=== PATIENT | female | born 2000 | race Caucasian/White ===

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

== ENCOUNTER 2022-11-21 10:41 | Emergency (ER) | payer OTHER ==
[2022-11-21 11:50] LABS: BASOPHILS ABSOLUTE AUTO 0.02 K/mm3 (0.01-0.08); BASOPHILS PERCENT AUTO 0.3 % (0.1-1.2); EOSINOPHILS ABSOLUTE AUTO 0.07 K/mm3 (0.04-0.36); EOSINOPHILS PERCENT AUTO 1.1 (0.7-5.8); HEMATOCRIT 36.3 % (34.1-44.9); HEMOGLOBIN 12.6 gm/dl (11.2-15.7); LYMPHOCYTES ABSOLUTE AUTO 1.39 K/mm3 (1.18-3.74); LYMPHOCYTES PERCENT AUTO 21.4 % (19.3-51.7); MEAN CORPUSCULAR HEMOGLOBIN 28.2 pg (25.6-32.2); MEAN CORPUSCULAR HGB CONC 34.7 g/dl (32.2-35.5); MEAN CORPUSCULAR VOLUME 81.2 fl (79.4-94.8); MEAN PLATELET VOLUME 10.5 fl (9.4-12.3); MONOCYTES ABSOLUTE AUTO 0.52 K/mm3 (0.24-0.36); NEUTROPHILS ABSOLUTE AUTO 4.49 K/mm3 (1.56-6.13); NEUTROPHILS PERCENT AUTO 69.2 % (34.0-71.1); PLATELET COUNT,PLT 295 K/mm3 (182-369); RED BLOOD CELL COUNT 4.47 M/mm3 (3.98-5.22); WHITE BLOOD CELL COUNT,WBC 6.49 K/mm3 (3.98-10.04)
[2022-11-21 13:48] LABS: APPEARANCE,URINE CLEAR (Clear); BILIRUBIN,URINE NEGATIVE (Negative); COLOR,URINE YELLOW (Yellow); GLUCOSE,URINE NEGATIVE (Negative); KETONES,URINE NEGATIVE (Negative); LEUKOCYTE ESTERASE,URINE NEGATIVE (Negative); NITRITE,URINE NEGATIVE (Negative); OCCULT BLOOD,URINE 2+ (Negative); PH,URINE 7.5 (5.0-8.0); PROTEIN,URINE NEGATIVE (Negative); UROBILINOGEN,URINE 0.2 (0.2-1.0)
[2022-11-21 13:55] LABS: BACTERIA,URINE RARE /hpf (FEW); MUCUS,URINE RARE /hpf (FEW); SQUAMOUS EPITHELIAL CELLS,UR 0-5 /hpf (0-5); WBC,URINE NOT SEEN /hpf (0-5)
[2022-11-21 15:12] LABS: C. TRACHOMATIS BY PCR NOT DETECTED; N. GONORRHOEAE BY PCR NOT DETECTED
== END 2022-11-21 15:40 | disposition home or self-care (01) ==
LOC: JD.ED 10:41
DX: O20.0 Threatened abortion (principal); Z3A.01 Less than 8 weeks gestation of pregnancy; Z87.891 Personal history of nicotine dependence; Z88.0 Allergy status to penicillin
CPT/HCPCS: 36415; 76817; 76817-26; 81001; 84702; 85025; 87491; 87591; 99284

== ENCOUNTER 2023-07-13 11:12 | Inpatient (IN) | payer BC ==
[2023-07-13] MEDS ORDERED: Calcium Carbonate 500 MG Tab.Chew PO PRN (19:26)
[2023-07-13] MEDS ORDERED: Sodium Chloride 0.9% 10 ML Syringe FLUSH PRN (19:26)
[2023-07-13] MEDS ORDERED: Nalbuphine HCl 10 MG/ 1ML Amp IVPUSH PRN (19:26)
[2023-07-13] MEDS ORDERED: Lidocaine 1% 50 ML MDV INJECT PRN (19:26)
[2023-07-13] MEDS ORDERED: Ondansetron 4 MG/2 ML SDV IVPUSH PRN (19:26)
[2023-07-13] MEDS ORDERED: Oxytocin/Lactated Ringers 30 UNIT/500 ML BAG IV SCH (19:30)
[2023-07-13 20:04] LABS: BASOPHILS PERCENT AUTO 0.3 % (0.0-1.0); EOSINOPHILS ABSOLUTE AUTO 0.1 K/mm3 (0.0-0.4); EOSINOPHILS PERCENT AUTO 0.7 % (0.0-6.0); HEMATOCRIT 34.7 % (37.0-47.0); IMMATURE GRAN ABSOLUTE AUTO 0.08 K/mm3 (0.00-0.05); IMMATURE GRAN PERCENT AUTO 0.8 % (0.0-0.4); MEAN CORPUSCULAR HEMOGLOBIN 27.8 pg (28.0-32.0); MEAN CORPUSCULAR HGB CONC 34.6 g/dl (32.0-36.0); MEAN CORPUSCULAR VOLUME 80.3 fl (83.0-99.0); MEAN PLATELET VOLUME 11.4 fl (9.4-12.3); MONOCYTES ABSOLUTE AUTO 0.5 K/mm3 (0.0-0.8); MONOCYTES PERCENT AUTO 5.4 % (0.0-8.0); NEUTROPHILS ABSOLUTE AUTO 7.2 K/mm3 (1.8-7.7); NEUTROPHILS PERCENT AUTO 72.8 % (41.0-71.0); PLATELET COUNT,PLT 252 K/mm3 (150-400); RED BLOOD CELL COUNT 4.32 M/mm3 (4.10-5.30); WHITE BLOOD CELL COUNT,WBC 9.92 K/mm3 (3.9-11.3)
[2023-07-13] MEDS: Misoprostol 25 MCG (1/4 of 100 MCG) Tab VAG ONE (20:40)
[2023-07-13] MEDS ORDERED: ePHEDrine 50 MG/ML SDV IVPUSH PRN (22:35)
[2023-07-13] MEDS ORDERED: diphenhydrAMINE 50 MG/ML SDV IVPUSH PRN (22:35)
[2023-07-13] MEDS ORDERED: Phenylephrine 1% 10 MG/ML SDV IVPUSH PRN (22:35)
[2023-07-14] MEDS ORDERED: Lidocaine 1% 10 ML MDV ONE
[2023-07-14] MEDS: Misoprostol 25 MCG (1/4 of 100 MCG) Tab VAG SCH (00:31)
[2023-07-14 00:51] LABS: CREATININE,URINE RAND 183.7 mg/dL (30.0-125.0); PROTEIN CREATININE RATIO,URINE 365.3 mg/g (0-149); PROTEIN,URINE RANDOM 67.1 mg/dL (0.0-11.8)
[2023-07-14] MEDS: Lactated Ringers 1,000 ML IV SCH (00:52)
[2023-07-14 00:54] LABS: A/G RATIO 0.6 (1-2); ALBUMIN 2.9 g/dl (3.4-5.0); ANION GAP 15.1 (5-15); BILIRUBIN TOTAL 0.2 mg/dL (0.2-1.0); BUN/CREATININE RATIO 8.9 (14-18); CALCIUM 9.3 mg/dL (8.5-10.1); CREATININE 0.9 mg/dL (0.55-1.02); EST CRCL DRUG DOSING (CG) 85.38 mL/min; POTASSIUM,K 4.1 mEq/L (3.5-5.1); PROTEIN TOTAL,TP 7.6 g/dl (6.4-8.2)
[2023-07-14] MEDS: fentaNYL 100 MCG/2 ML SDV EPIDUR PRN (01:36)
[2023-07-14] MEDS: Bupivacaine/fentaNYL/NS 100 ML Bag EPIDUR PRN (01:37)
[2023-07-14] MEDS: Oxytocin/Lactated Ringers 30 UNIT/500 ML BAG IV SCH (05:09)
[2023-07-14] MEDS: Witch Hazel Medicated Pads 40/Jar TOP PRN (14:08)
[2023-07-14] MEDS: Benzocaine/Menthol 20%-0.5% Spray 78 GM Cannister TOP PRN (14:08)
[2023-07-14] MEDS: Ibuprofen 600 MG Tab PO PRN (21:46)
== END 2023-07-15 16:10 | disposition home or self-care (01) | DRG 560 ==
LOC: JD.OB 11:12 → OBSVTOIN 07-14 11:12 → JD.OB 07-14 11:13
PROVIDERS: ADMIT Obstetrics & Gynecology; ATTEND Obstetrics & Gynecology
PROC: 10E0XZZ Delivery of Products of Conception, External Approach (ICD-10-PCS; principal; 2023-07-14)
PROC: 10907ZC Drainage of Amniotic Fluid, Therapeutic from Products of Conception, Via Natural or Artificial Opening (ICD-10-PCS; 2023-07-14)
PROC: 0HQ9XZZ Repair Perineum Skin, External Approach (ICD-10-PCS; 2023-07-14)
PROC: 3E0P7VZ Introduction of Hormone into Female Reproductive, Via Natural or Artificial Opening (ICD-10-PCS; 2023-07-14)
DX: O70.0 First degree perineal laceration during delivery (principal); Z37.0 Single live birth; Z3A.40 40 weeks gestation of pregnancy; O77.0 Labor and delivery complicated by meconium in amniotic fluid
CPT/HCPCS: 01967; 36415; 51702; 59025; 59409; 80053; 82570; 84156; 85025; 86592; 86850; 86900; 86901; A9270-GY; J3010; J3490; J7120; J7999